=== PATIENT | male | born 1980 | race Caucasian/White ===

== ENCOUNTER 2018-07-18 06:31 | Day surgery (SDC) | payer OTHER ==
[2018-07-18] MEDS ORDERED: ROCURONIUM 50 MG INJ (07:00)
[2018-07-18] MEDS ORDERED: FENTAnyl 50 MCG/ML VIAL IV ×2 (10:00)
[2018-07-18] MEDS ORDERED: MEPERIDINE 25 MG INJ IV (10:00)
[2018-07-18] MEDS ORDERED: DIPHENHYDRAMINE 50 MG INJ IV (10:00)
[2018-07-18] MEDS ORDERED: OXYCODONE/ACETAMINOPHEN (5/325) TAB PO (10:00)
[2018-07-18] MEDS ORDERED: PROCHLORPERAZINE 10 MG INJ IV (10:00)
[2018-07-18] MEDS ORDERED: HYDROmorphONE 1 MG/5 ML IV SYRINGE IV ×2 (10:00)
[2018-07-18] MEDS ORDERED: ONDANSETRON 4 MG INJ IV (10:00)
[2018-07-18] MEDS ORDERED: MIDAZOLAM 1 MG/ML 2 ML INJ (10:07)
[2018-07-18] MEDS ORDERED: ROPIVACAINE 0.5 % 30 ML VIAL (10:07)
[2018-07-18] MEDS ORDERED: FENTAnyl 50 MCG/ML VIAL (10:07)
[2018-07-18] MEDS ORDERED: PROPOFOL 40 ML (10:15)
[2018-07-18] MEDS ORDERED: SUCCINYLCHOLINE CHLORIDE 100 MG/5 ML SYG IV (10:15)
[2018-07-18] MEDS ORDERED: LIDOCAINE 2% (SDV) 5 ML INJ (10:15)
[2018-07-18] MEDS ORDERED: CEFAZOLIN 1 GM INJ (10:19)
[2018-07-18] MEDS: POLYMYXIN/BACITRACIN 1L IRRIG (10:24)
[2018-07-18] MEDS ORDERED: DEXAMETHASONE 4 MG/ML 5 ML INJ (10:27)
[2018-07-18] MEDS ORDERED: ONDANSETRON 4 MG INJ (10:27)
[2018-07-18] MEDS ORDERED: NEOSTIGMINE 3 MG/3 ML SYRINGE (10:55)
[2018-07-18] MEDS ORDERED: GLYCOPYRROLATE 0.4 MG INJ (10:55)
[2018-07-18] MEDS ORDERED: KETOROLAC 30 MG INJ (10:56)
[2018-07-18] MEDS ORDERED: LABETALOL HCL 20MG INJ (10:58)
[2018-07-18] MEDS: FENTAnyl 50 MCG/ML VIAL IV (11:26)
[2018-07-18] MEDS ORDERED: LABETALOL HCL 20MG INJ IV (11:30)
[2018-07-18] MEDS ORDERED: hydrALAzine 20 MG INJ IV (11:30)
[2018-07-18] MEDS: HYDROmorphONE 1 MG/5 ML IV SYRINGE IV (11:46)
[2018-07-18] MEDS: HYDROCODONE/APAP (5/325) TAB PO (12:39)
== END 2018-07-18 12:59 | disposition home or self-care (01) ==
LOC: SDS 06:31
DX: K40.30 Unilateral inguinal hernia, with obstruction, without gangrene, not specified as recurrent (principal)
CPT/HCPCS: 49507